=== PATIENT | female | born 1990 | race Caucasian/White ===

== ENCOUNTER 2016-09-15 13:52 | Emergency (ER) | payer OTHER ==
[~2016-09-15] VITALS: Ht 157.5 cm; Wt 56.0 kg
[~2016-09-15 13:52] MED LIST: PREN-39 PO
[2016-09-15 13:54] VITALS: Ht 157.5 cm; Wt 56.0 kg
--- NOTE | 2016-09-15 14:08 | ERA ---
ER Documentation Chief Complaint Date/Time DATE: 09/15/16 TIME: 14:[address], feels something stuck in throat HPI This is an otherwise of a 26-year-old female presents 2 days after dysphagia with burrito. Patient states that she feels like there is still something in her throat when she swallows. Patient states she is able to tolerate p.o. Denies any fever, cough, shortness of breath, dyspnea, or chest pain. Patient has no other complaints and denies any other associated manifestations. Sugars have been reviewed and are consistent with history given. ROS All systems reviewed and are negative except as per history of present illness. Medications Home Meds Reported Medications Vits W-Ca,Fe,Fa(<1MG) ( Vitamins) 1 Tab Tablet, 1 TAB PO DAILY 07/31/14 Allergies Allergies: Coded Allergies: No Known Allergies (Unverified Allergy, Unknown, 07/31/14) Physical Exam Vitals Vital Signs Date Time Temp Pulse Resp B/P Pulse Ox O2 Delivery O2 Flow Rate FiO2 09/15/16 13:54 98.1 79 18 126/79 99 Physical Exam Const: 26-year-old female no acute distress Head: Atraumatic Eyes: Normal Conjunctiva ENT: Normal External Ears, Nose and Mouth. No foreign body visualized. Neck: Full range of motion..~ No meningismus. Good air movement with auscultation and no bruits Resp: Clear to auscultation bilaterally. Equal chest expansion bilaterally. Good air movement. Cardio: Regular rate and rhythm, no murmurs Abd: Soft, non tender, non distended. Normal bowel sounds Skin: No petechiae or rashes Back: No midline or flank tenderness Ext: No cyanosis, or edema Neur: Awake and alert Psych: Normal Mood and Affect Procedures/MDM Otherwise healthy 26-year-old female presented with a chief complaint of dysphagia with prerenal 2 days ago but still feels like there something throat. Patient states that it is not painful or difficult to swallow, but she feels like something is stuck in there. No difficulty with breathing and has no respiratory symptoms described in her history. Physical exam was unremarkable. I have no suspicion for endangerment of the airway at this time. Patient received a p.o. fluid challenge which was successfully passed first time. We will go ahead and discharge the patient with discharge instructions return precautions as well as close follow-up with PCP for further evaluation and possible referral to a specialist for foreign body removal. Departure Diagnosis: Primary Impression: Foreign body in esophagus Qualified Code: T18.108A - Foreign body in esophagus, initial encounter Condition: Stable Additional Instructions: Follow up with your PCP within the next 1-3 days for a more thorough evaluation and a possible referral to a specialist. Return the the emergency department immediately if symptoms worsen or change. If you have any questions regarding medications, ask your pharmacist or us before you leave. If any adverse reactions occur while taking your medications, discontinue the treatment and return to the emergency department immediately. Take your medications as directed, and complete the entire course of treatment. NAZANIN CAMARILLO PA-C Sep 15, 2016 14:08
== END 2016-09-15 14:58 | disposition home or self-care (01) ==
LOC: FTE 13:52
DX: T18.108A Unspecified foreign body in esophagus causing other injury, initial encounter (principal); X58.XXXA Exposure to other specified factors, initial encounter; Y92.9 Unspecified place or not applicable
CPT/HCPCS: 99282

== ENCOUNTER 2017-06-04 10:41 | Emergency (ER) | END 2017-06-04 13:30 | disposition home or self-care (01) ==

== ENCOUNTER 2018-02-24 11:29 | Day surgery (SDC) | payer OTHER ==
[~2018-02-24] VITALS: Ht 152.4 cm; Wt 41.1 kg
[~2018-02-24 11:29] MED LIST changes: +CEPH250S33 PO; +PROPOFOL 200 MG INJ ONE
[2018-02-24] MEDS ORDERED: BIRTH CONTROL PILL (12:18)
[2018-02-24 12:37] VITALS: BP 111/72; PULSE 119; RESP 21
--- NOTE | 2018-02-24 13:40 | PREAC ---
Date/Time of Note Date/Time of Note DATE: 02/24/18 TIME: 13:39 Anesthesia Eval and Record Evaluation Time Pre-Procedure Interview DATE: 02/24/18 TIME: 13:39 Age 27 Sex female NPO: 8 hrs Preoperative diagnosis DYSPHAGIA Planned procedure EGD WITH BIOPSIES Past Medical History Past Medical History: None Surgery & Anesthesia Issues No known issue Meds Anticoagulation: No Beta Дмитрий within 24 hr: No Reason Beta Дмитрий not given: Pt. not on B-Дмитрий Reported Medications [ Control Pill ] No Conflict Check 02/24/18 Discontinued Reported Medications Vits W-Ca,Fe,Fa(<1MG) ( Vitamins) 1 Tab Tablet, 1 TAB PO DAILY 07/31/14 Discontinued Scripts Cephalexin* (Cephalexin* Susp) 250 Mg/5 Ml Susp.recon, 10 ML PO BID for 7 Days, BOTTLE Prov:JULIA RADER Cristian 06/04/17 Meds reviewed: Yes Allergies Coded Allergies: No Known Allergies (Unverified Allergy, Unknown, 02/24/18) Allergies Reviewed: Yes Labs/Studies Labs Reviewed: Reviewed by anesthesiologist test: Negative Pre-procedure Exam Last vitals Vital Signs Date Temp Pulse Resp B/P (MAP) Pulse Ox O2 O2 Flow FiO2 Time Delivery Rate 02/24/18 98.9 119 21 111/72 99 Room Air 12:37 (85) Airway: Adequate mouth opening, Adequate thyromental dist Mallampati: Mallampati II Teeth: Normal Lung: Normal Heart: Normal ASA Physical Status ASA physical status: 1 Emergency: None Planned Anesthetic General/MAC: MAC Planned Pain Management Parenteral pain med Pre-operative Attestations Prior to commencing anesthesia and surgery, the patient was re-evaluated, there was verification of: *The patient's identity *The results of appropriate recent lab work and preoperative vital signs *The above evaluation not changing prior to induction *Anesthetic plan, risk benefits, alternative and complications discussed with patient/family; questions answered; patient/family understands, accepts and wishes to proceed. Dougie Mccollum M.D. Feb 24, 2018 13:40
[2018-02-24] MEDS ORDERED: FENTAnyl 50 MCG/ML VIAL ONE (13:41)
[2018-02-24] MEDS ORDERED: PROPOFOL 40 ML ONE (13:41)
[2018-02-24] MEDS ORDERED: LIDOCAINE 100 MG SYRINGE ONE (13:41)
--- NOTE | 2018-02-24 13:58 | HPN ---
Date/Time of Note Date/Time of Note DATE: 02/24/18 TIME: 13:58 Interval H&P Admission Note Pt. seen H&P reviewed: No system changes ROBERTA BAH Feb 24, 2018 13:58
[2018-02-24] MEDS ORDERED: HYDROmorphONE 1 MG/5 ML IV SYRINGE IV PRN ×3 (14:00)
[2018-02-24] MEDS ORDERED: OXYCODONE/ACETAMINOPHEN (5/325) TAB PO PRN ×2 (14:00)
[2018-02-24] MEDS ORDERED: FENTAnyl 50 MCG/ML VIAL IV PRN ×3 (14:00)
[2018-02-24] MEDS ORDERED: EPHEDrine SULFATE 50 MG/5 ML SYG IV PRN (14:00)
[2018-02-24] MEDS ORDERED: DIPHENHYDRAMINE 50 MG INJ IV PRN (14:00)
[2018-02-24] MEDS ORDERED: ONDANSETRON 4 MG INJ IV PRN (14:00)
[2018-02-24] MEDS ORDERED: MIDAZOLAM 1 MG/ML 2 ML INJ IV PRN (14:00)
[2018-02-24] MEDS ORDERED: MEPERIDINE 25 MG INJ IV PRN (14:00)
[2018-02-24] MEDS ORDERED: TRIMETHOBENZAMIDE 100 MG/ML VIAL IM PRN (14:00)
[2018-02-24] MEDS ORDERED: hydrALAzine 20 MG INJ IV PRN (14:00)
[2018-02-24] MEDS ORDERED: LABETALOL HCL 20MG INJ IV PRN (14:00)
[2018-02-24] MEDS ORDERED: ALBUTEROL 0.083% (NEB) 2.5 MG/3 ML AMP HHN PRN (14:00)
[2018-02-24] MEDS ORDERED: IPRATROPIUM (NEB) 0.5 MG/2.5 ML AMP HHN PRN (14:00)
--- NOTE | 2018-02-24 14:14 | PAC ---
Date/Time of Note Date/Time of Note DATE: 02/24/18 TIME: 14:13 Post-Anesthesia Notes Post-Anesthesia Note Last documented vital signs Vital Signs Date Temp Pulse Resp B/P (MAP) Pulse Ox O2 O2 Flow FiO2 Time Delivery Rate 02/24/18 98.9 119 21 111/72 99 Room Air 14:13 (85) Activity: WNL Respiratory function: WNL Cardiovascular function: WNL Mental status: Baseline Pain reasonably controlled: Yes Hydration appropriate: Yes Nausea/Vomiting absent: Yes Dougie Mccollum M.D. Feb 24, 2018 14:13
[2018-02-24 14:26] VITALS: BP 112/71; PULSE 98; RESP 12
== END 2018-02-24 17:13 | disposition home or self-care (01) ==
LOC: GIL 11:29
PROVIDERS: ATTEND Internal Medicine Gastroenterology
DX: K44.9 Diaphragmatic hernia without obstruction or gangrene (principal); K29.70 Gastritis, unspecified, without bleeding
CPT/HCPCS: 43239; 84703; 88305; 88312; J2001; J3010; Z7610